=== PATIENT | female | born 1950 | race Caucasian/White ===

== ENCOUNTER 2023-09-13 09:39 | Day surgery (SDC) | payer MEDICARE, BC ==
[~2023-09-13 09:39] MED LIST: Lactated Ringers 1,000 ML IV SCH
[2023-09-13] MEDS: Lactated Ringers 1,000 ML IV SCH (09:54)
[2023-09-13] MEDS ORDERED: Ketamine 200 MG/20 ML MDV ONE (10:28)
[2023-09-13] MEDS ORDERED: Midazolam 1 MG/ML 2 ML SDV ONE (10:28)
[2023-09-13] MEDS ORDERED: Propofol 200 MG/20 ML SDV ONE (10:28)
[2023-09-13] MEDS ORDERED: fentaNYL 50 MCG/ML SDV ONE (10:28)
[2023-09-13] MEDS ORDERED: Phenylephrine 1% 10 MG/ML SDV ONE (10:28)
[2023-09-13 11:33] VITALS: BP 109/42; PULSE 68
== END 2023-09-13 11:50 | disposition home or self-care (01) ==
LOC: CC.SDS 09:39
PROVIDERS: ATTEND Family Medicine
DX: Z12.11 Encounter for screening for malignant neoplasm of colon (principal); K62.1 Rectal polyp; K21.9 Gastro-esophageal reflux disease without esophagitis; E78.5 Hyperlipidemia, unspecified; F41.8 Other specified anxiety disorders; M85.80 Other specified disorders of bone density and structure, unspecified site; E53.8 Deficiency of other specified B group vitamins; F17.210 Nicotine dependence, cigarettes, uncomplicated; Z79.899 Other long term (current) drug therapy
CPT/HCPCS: 00811; 45380; 88305; 99100; J2250; J2371; J2704; J3010; J3490; J7120